=== PATIENT | male | born 1975 | race Caucasian/White ===

== ENCOUNTER 2017-08-19 14:46 | Observation (INO) | payer BC, OTHER ==
[2017-08-19] MEDS ORDERED: Aspirin 81 MG Tab.Chew PO ONE (15:00)
[2017-08-19] MEDS ORDERED: Sodium Chloride 0.9% 1,000 ML IV SCH (15:00)
--- NOTE | 2017-08-19 15:07 | EDM.PDOC ---
ED HPI GENERAL MEDICAL PROBLEM - General Chief Complaint: Chest Pain Stated Complaint: SOB Time Seen by Provider: 08/19/17 14:54 Source of Information: Reports: Patient History Limitations: Reports: No Limitations - History of Present Illness INITIAL COMMENTS - FREE TEXT/NARRATIVE: HISTORY AND PHYSICAL: History of present illness: Patient is a 42-year-old male who presents to the emergency room today with complaints of chest pain that radiates into both arms along with shortness of breath 1 week. Patient states that his symptoms are aggravated when performing physical activities or when he is exerted. Patient states his symptoms feel similar to a case of pneumonia that he had last year. Chest pain is not reproducible with palpation. Denies any headache, visual changes, nausea, vomiting or diarrhea. Denies any fever or chills. Has no cardiac history, and no significant family history. Patient has a past medical history of diabetes type 2 and high cholesterol. 25 year, pack per day smoker. Review of systems: As per history of present illness and below otherwise all systems reviewed and negative. Past medical history: As per history of present illness and as reviewed below otherwise noncontributory. Surgical history: As per history of present illness and as reviewed below otherwise noncontributory. Social history: No reported history of drug or alcohol abuse. Family history: As per history of present illness and as reviewed below otherwise noncontributory. Physical exam: General: Patient is a well-developed and well-nourished 42-year-old male. Able to speak in full sentences without shortness of breath. Alert and oriented. HEENT: Atraumatic, normocephalic, pupils reactive, negative for conjunctival pallor or scleral icterus, left tympanic membrane is erythematous with dull light reflex, right TM normal, mucous membranes moist, throat clear, neck supple , nontender, trachea midline. Lungs: Clear to auscultation, breath sounds equal bilaterally, chest nontender. Heart: S1S2, regular rate and rhythm Abdomen: Soft, obese, nondistended, nontender. Negative for masses. Negative for costovertebral tenderness. Pelvis: Stable nontender. Genitourinary: Deferred. Rectal: Deferred. Extremities: Atraumatic, moves all extremities per self, negative for cords or calf pain. Neurovascular unremarkable. Neuro: Awake, alert, oriented. Cranial nerves II through XII unremarkable. Cerebellum unremarkable. Motor and sensory unremarkable throughout. Exam nonfocal. Patient is pain-free. I reviewed the testing results with the patient. Due to the patient's risk factors such as age, smoking, symptoms I would like to admit him overnight for observation on telemetry. Dr. Mora was consult it on this patient and is agreeable for admission under observation status. Patient is agreeable and voices understanding. 1 g of nitroglycerin was applied topically. Will be placed on telemetry and going to [facility]. Incidental finding of a left otitis media. Patient does not have any otic pain, drainage, or itching - I will give the patient a script for Augmentin which he may fill upon his discharge if his ear becomes bothersome. Instructed to the patient that this may resolve on its own. Patient voices understanding and is agreeable to plan of care Diagnostics: CBC, CMP, troponin, EKG, chest x-ray, cardiac surgeon Therapeutics: Aspirin, IV fluid Augmentin Impression: Left otitis media, chest pain rule out myocardial infarction Plan: 1. Observation admission with telemetry Definitive disposition and diagnosis as appropriate pending reevaluation and review of above. Duration: Week(s): Location: Reports: Chest, Upper Extremity, Left, Upper Extremity, Right chest Pain Score (Numeric/FACES): 4 - Related Data Allergies Allergy/AdvReac Type Severity Reaction Status Date / Time No Known Allergies Allergy Verified 08/19/17 15:01 Home Meds: Home Meds . [No Known Home Meds] 08/19/17 [History] Past Medical History Cardiovascular History: Reports: High Cholesterol Endocrine/Metabolic History: Reports: Diabetes, Type II - Past Surgical History Musculoskeletal Surgical History: Reports: Shoulder Surgery Social & Family History - Tobacco Use Smoking Status *Q: Current Every Day Smoker Years of Tobacco use: 25 Packs/Tins Daily: 0.5 - Caffeine Use Caffeine Use: Reports: Coffee - Alcohol Use Days Per Week of Alcohol Use: 1 Number of Drinks Per Day: 10 Total Drinks Per Week: 10 - Recreational Drug Use Recreational Drug Use: Yes Recreational Drug Type: Reports: Marijuana/Hashish ED ROS GENERAL - Review of Systems Review Of Systems: ROS reveals no pertinent complaints other than HPI. ED EXAM, GENERAL - Physical Exam Exam: See Below (See Dictation) Course - Vital Signs Last Recorded V/S: Last Vital Signs Temp 36.1 C 08/19/17 14:46 Pulse 80 08/19/17 16:00 Resp 16 08/19/17 16:00 BP 114/71 08/19/17 16:00 Pulse Ox 94 L 08/19/17 16:00 - Orders/Labs/Meds Orders: Active Orders 24 hr Category Date Time Status Admission Status [Patient Status] [ADT] Stat ADT 08/19/17 15:55 Active EKG Documentation Completion [RC] STAT Care 08/19/17 15:00 Active Sodium Chloride 0.9% [Normal Saline] 1,000 ml Med 08/19/17 15:00 Active IV STAT Medication Orders Sodium Chloride (Normal Saline) 1,000 mls @ 125 mls/hr IV STAT GRACE Last Admin: 08/19/17 15:17 Dose: 125 mls/hr Labs: Laboratory Tests 08/19/17 08/19/17 08/19/17 Range/Units 15:10 15:10 15:10 WBC 9.40 (4.0-11.0) K/uL RBC 5.02 (4.50-5.90) M/uL Hgb 16.9 (13.0-17.0) g/dL Hct 46.8 (38.0-50.0) % MCV 93.2 (80.0-98.0) fL MCH 33.7 H (27.0-32.0) pg MCHC 36.1 (31.0-37.0) g/dL RDW Std Deviation 43.5 (28.0-62.0) fl RDW Coeff of James 13 (11.0-15.0) % Plt Count 209 (150-400) K/uL MPV 9.50 (7.40-12.00) fL Neut % (Auto) 62.8 (48.0-80.0) % Lymph % (Auto) 28.5 (16.0-40.0) % [place] % (Auto) 7.3 (0.0-15.0) % Eos % (Auto) 1.2 (0.0-7.0) % Baso % (Auto) 0.2 (0.0-1.5) % Neut # (Auto) 5.9 H (1.4-5.7) K/uL Lymph # (Auto) 2.7 H (0.6-2.4) K/uL [place] # (Auto) 0.7 (0.0-0.8) K/uL Eos # (Auto) 0.1 (0.0-0.7) K/uL Baso # (Auto) 0.0 (0.0-0.1) K/uL Nucleated RBC % 0.0 /100WBC Nucleated RBCs # 0 K/uL Sodium 137 (136-146) mmol/L Potassium 4.0 (3.5-5.1) mmol/L Chloride 101 (98-110) mmol/L Carbon Dioxide 27 (21-31) mmol/L BUN 13 (6.0-23.0) mg/dL Creatinine 1.1 (0.6-1.5) mg/dL Est Cr Clr Drug Dosing TNP Estimated GFR (MDRD) > 60.0 ml/min Glucose 335 H (60-110) mg/dL Calcium 9.9 (8.8-10.8) mg/dL Total Bilirubin 0.6 (0.1-1.5) mg/dL AST 25 (5-40) IU/L ALT 46 (8-54) IU/L Alkaline Phosphatase 67 (40-150) Troponin I < 0.10 (0.0-0.29) NG/ML Total Protein 7.4 (6.0-8.0) g/dL Albumin 4.4 (3.5-5.0) g/dL Globulin 3.0 (2.0-3.5) g/dL Albumin/Globulin Ratio 1.5 (1.3-2.8) Meds: Medications Generic Name Dose Route Start Last Admin Trade Name Freq PRN Reason Stop Dose Admin Sodium Chloride 1,000 mls @ 125 mls/hr 08/19/17 15:00 08/19/17 15:17 Normal Saline IV 125 mls/hr STAT GRACE Administration Discontinued Medications Generic Name Dose Route Start Last Admin Trade Name Freq PRN Reason Stop Dose Admin Aspirin 324 mg 08/19/17 15:00 08/19/17 15:17 Aspirin PO 08/19/17 15:01 324 mg ONETIME ONE Administration Nitroglycerin 1 gm 08/19/17 15:53 08/19/17 16:02 Nitro-Bid 2% TOP 08/19/17 15:54 1 gm ONETIME ONE Administration Nitroglycerin Confirm 08/19/17 15:59 Nitro-Bid 2% Administered 08/19/17 16:00 Dose 1 gm .ROUTE .STK-MED ONE Departure - Departure Time of Disposition: 16:16 Disposition: Refer to Observation Clinical Impression: Chest pain, rule out acute myocardial infarction Otitis media Qualifiers: Laterality: left Recurrence: not specified as recurrent Spontaneous tympanic membrane rupture: without spontaneous rupture Referrals: PCP,Unknown [Primary Care Provider] - Forms: ED Department Discharge - My Orders Last 24 Hours: My Active Orders 08/19/17 15:00 EKG Documentation Completion [RC] STAT Sodium Chloride 0.9% [Normal Saline] 1,000 ml IV STAT 08/19/17 15:55 Admission Status [Patient Status] [ADT] Stat - Assessment/Plan Last 24 Hours: My Active Orders 08/19/17 15:00 EKG Documentation Completion [RC] STAT Sodium Chloride 0.9% [Normal Saline] 1,000 ml IV STAT 08/19/17 15:55 Admission Status [Patient Status] [ADT] Stat
--- NOTE | 2017-08-19 15:38 | CR ---
EXAMINATION: Portable chest radiograph. HISTORY: Chest pain. FINDINGS: The trachea is midline. The cardiomediastinal silhouette is within normal limits. No pulmonary infilt rates, effusions or pneumothorax. Osseous structures appear unremarkable. IMPRESSION: No acute cardiopulmonary process.
[2017-08-19 15:40] LABS: CHLORIDE,CL 101 mmol/L (98-110); SODIUM,NA 137 mmol/L (136-146)
[2017-08-19] MEDS ORDERED: Nitroglycerin 2% Oint 1 GM UD Packet TOP ONE (15:53)
[2017-08-19] MEDS ORDERED: Nitroglycerin 2% Oint 1 GM UD Packet ONE (15:59)
[2017-08-19] MEDS ORDERED: Calcium Carbonate 500 MG Tab.Chew PO PRN (17:28)
--- NOTE | 2017-08-19 17:48 | PCM.HP ---
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 He has no history of diabetes or hypertension or heart disease. Today when he was working, he had tingling going down both arms as well as burning and pressure in his chest. He denies coughing or shortness of breath. He felt better when given nitrates in the ER. ECG was negative and his Troponin was normal. He is placed on observation to evaluate for ACS. Onset of Symptoms: Reports: Today Duration of Symptoms: Reports: Getting Worse Quality: Reports: Ache, Burning Severity: Moderate Improves with: Reports: Rest Worsens with: Reports: Other (Physical activity), Movement Context: Reports: Activity/Exercise, Exertion. Denies: Trauma Associated Symptoms: Denies: Cough, Fever/Chills, Headaches, Loss of Appetite, Nausea/Vomiting, Shortness of Breath chest Pain Score (Numeric/FACES): 4 - Related Data Allergies/Adverse Reactions: Allergies Allergy/AdvReac Type Severity Reaction Status Date / Time No Known Allergies Allergy Verified 08/19/17 15:01 Home Medications: Home Meds . [No Known Home Meds] 08/19/17 [History] Past Medical History - Past Health History Medical/Surgical History: Denies Medical/Surgical History HEENT History: Reports: None Cardiovascular History: Reports: High Cholesterol Respiratory History: Reports: None Gastrointestinal History: Reports: None Genitourinary History: Reports: None Musculoskeletal History: Reports: None Neurological History: Reports: None Endocrine/Metabolic History: Reports: Diabetes, Type II Other Endocrine/Metabolic History: pre-diabetes Hematologic History: Reports: None Immunologic History: Reports: None - Past Surgical History Musculoskeletal Surgical History: Reports: Shoulder Surgery Social & Family History - Family History Family Medical History: Noncontributory Endocrine/Metabolic: Reports: Diabetes, type II - Tobacco Use Smoking Status *Q: Current Every Day Smoker Years of Tobacco use: 25 Packs/Tins Daily: 2 Second Hand Smoke Exposure: No - Caffeine Use Caffeine Use: Reports: Coffee, Tea - Alcohol Use Days Per Week of Alcohol Use: 1 Number of Drinks Per Day: 2 Total Drinks Per Week: 2 Date of Last Drink: 08/16/17 Time of Last Drink: 21:00 - Recreational Drug Use Recreational Drug Use: No Drug Use in Last 12 Months: Yes Recreational Drug Type: Reports: Marijuana/Hashish H&P Review of Systems - Review of Systems: Review Of Systems: See Below General: Denies: Fever, Weakness, Fatigue, Night Sweats HEENT: Reports: No Symptoms, Ear Pain. Denies: Contact Lenses Pulmonary: Reports: No Symptoms Cardiovascular: Reports: Chest Pain. Denies: Palpitations, Dyspnea on Exertion , Lightheadedness, Syncope, Blood Pressure Problem Gastrointestinal: Denies: No Symptoms Genitourinary: Reports: No Symptoms Musculoskeletal: Reports: No Symptoms Skin: Reports: No Symptoms Psychiatric: Reports: No Symptoms Neurological: Reports: No Symptoms Hematologic/Lymphatic: Reports: No Symptoms Immunologic: Reports: No Symptoms Exam - Exam Exam: See Below - Vital Signs Vital Signs: Last Vital Signs Temp 36.1 C 08/19/17 16:32 Pulse 78 08/19/17 16:32 Resp 17 08/19/17 16:32 BP 120/76 08/19/17 16:32 Pulse Ox 98 08/19/17 16:32 Weight: 119.4 kg - Exam General: Alert, Oriented, Cooperative HEENT: Conjunctiva Clear, EOMI, Hearing Intact, Mucosa Moist & Hersey, Nares Patent, Posterior Pharynx Clear, Pupils Equal Neck: Supple, Trachea Midline Lungs: Clear to Auscultation, Normal Respiratory Effort Cardiovascular: Regular Rate, Regular Rhythm GI/Abdominal Exam: Soft, Non-Tender, No Organomegaly, No Distention, No Mass Extremities: Normal Inspection, Normal Range of Motion, Non-Tender, No Pedal Edema, Normal Capillary Refill Neurological: Cranial Nerves Intact Neuro Extensive - Mental Status: Alert, Oriented x3, Normal Mood/Affect, Memory Intact Psychiatric: Normal Affect - Patient Data Result Diagrams: 08/19/17 15:10 08/19/17 15:10 EKG INTERPRETATION Rhythm: NSR Comparison: NA - No Prior EKG *Q Meaningful Use (ADM) - VTE *Q VTE Criteria *Q: - Stroke *Q Stroke Criteria *Q: - AMI *Q AMI Criteria *Q: - Problem List (1) Hyperglycemia SNOMED Code(s): 71121130 ICD Code: R73.9 - HYPERGLYCEMIA, UNSPECIFIED Status: Acute Priority: Medium Current Visit: Yes (2) Chest pain, rule out acute myocardial infarction SNOMED Code(s): 43272995 ICD Code: R07.9 - CHEST PAIN, UNSPECIFIED Status: Acute Priority: High Current Visit: Yes Problem List Initiated/Reviewed/Updated: Yes Orders Last 24hrs: Active Orders 24 hr Category Date Time Status Bedrest Bathroom Privileges [RC] ASDIRECTED Care 08/19/17 17:28 Ordered Communication Order [RC] PER UNIT ROUTINE Care 08/19/17 17:08 Active EKG 12 Lead [EKG Documentation Completion] [RC] ROUTINE Care 08/20/17 08:00 Ordered Oxygen Therapy [RC] PRN Care 08/19/17 17:30 Ordered Telemetry Monitoring [Cardiac Monitoring] [RC] . Care 08/19/17 16:15 Active DIRECTED Vital Signs [RC] Q4H Care 08/19/17 17:29 Ordered No Concentrated Sweet Diet [DIET] Diet 08/20/17 Breakfast Ordered Regular Diet [DIET] Diet 08/19/17 Dinner Active GLYCOSYLATED HEMOGLOBIN,HGBA1C [CHEM] Routine Lab 08/19/17 17:27 Ordered TROPONIN I [CHEM] Routine Lab 08/20/17 03:00 Ordered TROPONIN I [CHEM] Urgent Lab 08/19/17 21:00 Ordered Acetaminophen [Tylenol] Med 08/19/17 17:28 Ordered 650 mg PO Q4H PRN Calcium Carbonate [Tums] Med 08/19/17 17:28 Ordered 500 mg PO Q4H PRN Code Status [Resuscitation Status] Routine Resus Stat 08/19/17 17:41 Ordered Medication Orders Acetaminophen (Tylenol) 650 mg PO Q4H PRN PRN Reason: analgesia/fever Calcium Carbonate/Glycine (Tums) 500 mg PO Q4H PRN PRN Reason: Dyspepsia Assessment/Plan Comment:: He will receive serial troponins and a repeat ECG in the morning. He will have further work up as indicated and if troponins are negative, he will be referred for stress testing. He is getting a glycosylated hemoglobin. A nonfasting glucose was 335 but the patient was not aware he was diabetic. Further glucoses will be checked AC. Diet is changed from regular to no concentrated sweets.
[2017-08-19] MEDS ORDERED: Insulin Aspart 100 Units/ML 3 ML Pen SUBCUT ONE (19:30)
[2017-08-20] MEDS: Acetaminophen 325 MG Tab PO PRN ×2 (03:25→08:38)
[2017-08-20] MEDS ORDERED: Insulin Aspart 100 Units/ML 3 ML Pen SUBCUT SCH (08:00)
[2017-08-20 08:46] VITALS: BP 120/74
[2017-08-20] MEDS ORDERED: Pantoprazole 40 MG in Sodium Chloride 0.9% 10 ML IVPUSH ONE (09:13)
--- NOTE | 2017-08-20 11:38 | PCM.DCSUM1 ---
<Jameson,Vivek - Last Filed: 08/20/17 19:30> Discharge Summary - Hospital Course Free Text/Narrative:: 42 yo male with no previous medical history admitted for chest pain r/o on 08/19. His initial EKG/troponin/cxr in ED were negative. He was admitted to floor for observation and telemetry. He had no previous diagnosis of DM but was found to have HbA1C of 9.1. His blood glucose levels ranged from 200-350 during admission. His chest pain recurred the next morning but was intermittent and mild. He reports history of recurrent intermittent chest pain that is burning in nature and occurs mostly in the morning when he wakes up. Overnight telemetry was negative and Troponin [id number] x3 were negative. He was discharged home the following morning. His chest pain was suspicious for dyspepsia therefore he was discharged home with Protonix 40 mg 30 tabs with 1 refill. He was also given referral for stress test as out-patient. For his DM he was discharged home on Metformin ER 1000 mg QD. He was informed of the importance if having PCP. He does not have official place of residence and lives hotel to [facility] but does stay at least one night per week in [place]. He was given information for pcp in [place] and here at [facility]. He was instructed to contact them Tuesday morning to schedule himself appointment. He acknowledged understanding and agreed with plan.He was discharged under care of his on 08/20/17. - Discharge Data Discharge Date: 08/20/17 Discharge Disposition: Home, Self-Care 01 Condition: Good - Patient Instructions Diet: Diabetic Diet Activity: As Tolerated Driving: May Drive Today Showering/Bathing: May Shower Other/Special Instructions: 1. You will be contacted by hospital to schedule your stress test. 2. We have provided you contact numbers for list of primary care physicians, please contact them to schedule yourself an appoitment. - Discharge Plan Prescriptions/Med Rec: metFORMIN HCl [Metformin HCl ER] 1,000 mg PO DAILY 30 Days #30 tab.er.24 Pantoprazole [ProTONIX] 40 mg PO BEDTIME #30 tab.cr Home Medications: Home Meds Pantoprazole [ProTONIX] 40 mg PO BEDTIME #30 tab.cr 08/20/17 [Rx] metFORMIN HCl [Metformin HCl ER] 1,000 mg PO DAILY 30 Days #30 tab.er.24 [Rx] Patient Handouts: Chest Wall Pain, [id number], Hyperglycemia, [id number], Metformin tablets, Pantoprazole tablets - Patient Data Vitals - Most Recent: Last Vital Signs Temp 36.8 C 08/20/17 08:00 Pulse 83 08/20/17 08:00 Resp 20 08/20/17 08:00 BP 120/74 08/20/17 08:00 Pulse Ox 75 L 08/20/17 08:00 Weight - Most Recent: 119.4 kg I&O - Last 24 hours: Intake & Output 08/19/17 08/20/17 08/20/17 22:59 06:59 14:59 Intake Total 250 400 350 Output Total 850 250 Balance 250 -450 100 Lab Results - Last 24 hrs: Laboratory Results - last 24 hr 08/19/17 08/19/17 08/19/17 Range/Units 19:52 20:47 21:07 POC Glucose 316 H 294 H (60-110) mg/dL Troponin I < 0.10 (0.0-0.29) NG/ML Triglycerides (10-190) mg/dL Cholesterol (131-240) mg/dL LDL Cholesterol, Calc (60-180) mg/dL VLDL Cholesterol (5-55) mg/dL HDL Cholesterol (40-80) mg/dL Cholesterol/HDL Ratio (3.3-6.0) 08/19/17 08/20/17 08/20/17 Range/Units 21:35 03:10 03:10 POC Glucose 253 H (60-110) mg/dL Troponin I < 0.10 (0.0-0.29) NG/ML Triglycerides 237 H (10-190) mg/dL Cholesterol 217 (131-240) mg/dL LDL Cholesterol, Calc 147 (60-180) mg/dL VLDL Cholesterol 47 (5-55) mg/dL HDL Cholesterol 23 L (40-80) mg/dL Cholesterol/HDL Ratio 9.4 H (3.3-6.0) Med Orders - Current: Current Medications Discontinued Medications Acetaminophen (Tylenol) 650 mg PO Q4H PRN PRN Reason: analgesia/fever Last Admin: 08/20/17 08:38 Dose: 650 mg Aspirin (Aspirin) 324 mg PO ONETIME ONE Stop: 08/19/17 15:01 Last Admin: 08/19/17 15:17 Dose: 324 mg Calcium Carbonate/Glycine (Tums) 500 mg PO Q4H PRN PRN Reason: Dyspepsia Sodium Chloride (Normal Saline) 1,000 mls @ 125 mls/hr IV STAT GRACE Last Admin: 08/19/17 15:17 Dose: 125 mls/hr Pantoprazole Sodium 40 mg/ (Sodium Chloride) 10 mls @ 300 mls/hr IVPUSH NOW ONE Stop: 08/20/17 09:14 Last Admin: 08/20/17 09:28 Dose: 300 mls/hr Insulin Aspart (Novolog) 10 unit SUBCUT ONETIME ONE Stop: 08/19/17 19:31 Last Admin: 08/19/17 19:56 Dose: 10 units Insulin Aspart (Novolog) 5 unit SUBCUT BIDMEALS GRACE Last Admin: 08/20/17 07:12 Dose: 5 units Nitroglycerin (Nitro-Bid 2%) 1 gm TOP ONETIME ONE Stop: 08/19/17 15:54 Last Admin: 08/19/17 16:02 Dose: 1 gm Nitroglycerin (Nitro-Bid 2%) Confirm Administered Dose 1 gm .ROUTE .STK-MED ONE Stop: 08/19/17 16:00 Last Admin: 08/19/17 16:16 Dose: Not Given *Q Meaningful Use (DIS) - VTE *Q VTE Criteria *Q: - Stroke *Q Stroke Criteria *Q: - AMI *Q AMI Criteria *Q: <Mason Mora - Last Filed: 08/21/17 11:39> Discharge Summary - Discharge Diagnosis/Problem(s) (1) Hyperglycemia SNOMED Code(s): 99289495 ICD Code: R73.9 - HYPERGLYCEMIA, UNSPECIFIED Status: Acute Priority: Medium (2) Chest pain, rule out acute myocardial infarction SNOMED Code(s): 83226612 ICD Code: R07.9 - CHEST PAIN, UNSPECIFIED Status: Acute Priority: High - Patient Data Vitals - Most Recent: Last Vital Signs Temp 36.8 C 08/20/17 08:00 Pulse 83 08/20/17 08:00 Resp 20 08/20/17 08:00 BP 120/74 08/20/17 08:00 Pulse Ox 75 L 08/20/17 08:00 Lab Results - Last 24 hrs: Laboratory Results - last 24 hr 08/20/17 Range/Units 06:31 POC Glucose 199 H (60-110) mg/dL Med Orders - Current: Current Medications Discontinued Medications Acetaminophen (Tylenol) 650 mg PO Q4H PRN PRN Reason: analgesia/fever Last Admin: 08/20/17 08:38 Dose: 650 mg Aspirin (Aspirin) 324 mg PO ONETIME ONE Stop: 08/19/17 15:01 Last Admin: 08/19/17 15:17 Dose: 324 mg Calcium Carbonate/Glycine (Tums) 500 mg PO Q4H PRN PRN Reason: Dyspepsia Sodium Chloride (Normal Saline) 1,000 mls @ 125 mls/hr IV STAT GRACE Last Admin: 08/19/17 15:17 Dose: 125 mls/hr Pantoprazole Sodium 40 mg/ (Sodium Chloride) 10 mls @ 300 mls/hr IVPUSH NOW ONE Stop: 08/20/17 09:14 Last Admin: 08/20/17 09:28 Dose: 300 mls/hr Insulin Aspart (Novolog) 10 unit SUBCUT ONETIME ONE Stop: 08/19/17 19:31 Last Admin: 08/19/17 19:56 Dose: 10 units Insulin Aspart (Novolog) 5 unit SUBCUT BIDMEALS GRACE Last Admin: 08/20/17 07:12 Dose: 5 units Nitroglycerin (Nitro-Bid 2%) 1 gm TOP ONETIME ONE Stop: 08/19/17 15:54 Last Admin: 08/19/17 16:02 Dose: 1 gm Nitroglycerin (Nitro-Bid 2%) Confirm Administered Dose 1 gm .ROUTE .STK-MED ONE Stop: 08/19/17 16:00 Last Admin: 08/19/17 16:16 Dose: Not Given *Q Meaningful Use (DIS) - VTE *Q VTE Criteria *Q: - Stroke *Q Stroke Criteria *Q: - AMI *Q AMI Criteria *Q: - Free Text/Narrative Note: Dr. Mora writes: I have examined this patient and have reviewed his data. I have discussed him at length with Dr. Barba. I agree with Dr. Barba's note, assessment and plan.
== END 2017-08-20 11:05 | disposition home or self-care (01) ==
LOC: MW.ED 14:46 → MW.MS 15:55 → MW.ED 16:14
PROVIDERS: ADMIT Family Medicine; ATTEND Family Medicine
DX: R07.9 Chest pain, unspecified (principal); E11.65 Type 2 diabetes mellitus with hyperglycemia; F17.210 Nicotine dependence, cigarettes, uncomplicated; Z98.890 Other specified postprocedural states
CPT/HCPCS: 36415; 71010; 80053; 80061; 82962; 83036; 84484; 85025; 93005; 96361; 96372; 96374; 99285; A9270; C9113; G0378; J1815; J7040; 96360; 99283

== ENCOUNTER 2025-08-19 22:31 | Inpatient (IN) | payer BC, OTHER ==
[2025-08-19] MEDS ORDERED: Sodium Chloride 0.9% 10 ML Syringe FLUSH PRN (22:35)
[2025-08-19] MEDS ORDERED: Sodium Chloride 0.9% 2.5 ML Syringe FLUSH PRN (22:35)
[2025-08-19 22:43] LABS: MEAN PLATELET VOLUME 9.0 fL (9.4-12.4); NRBC ABSOLUTE 0.00 K/uL (0.00-0.02); NRBC PERCENT 0.0 /100WBC (0.0-0.2); PLATELET COUNT,PLT 271 K/uL (150-400); RED BLOOD CELL COUNT 5.30 M/uL (4.52-5.90); WHITE BLOOD CELL COUNT,WBC 26.18 K/uL (3.9-11.3)
[2025-08-19] MEDS: methylPREDNISolone Sodium Succinate 125 MG/2 ML SDV IVPUSH ONE (22:47)
[2025-08-19 22:57] LABS: INR 1.04 (0.86-1.11)
[2025-08-19 23:09] LABS: BASE EXCESS VENOUS -1.0 (-2.0-3.0); BICARBONATE,VENOUS 25.0 mEq/L (22-29); PCO2 VENOUS 44.0 mmHG (41-51); PH,VENOUS 7.36 (7.32-7.43); PO2 VENOUS 40.0 mmHG (35-45)
[2025-08-19 23:12] LABS: A/G RATIO 1.4 (0.9-1.6); ALANINE AMINOTRANSFERASE,ALT 25 IU/L (14-63); ASPARTATE AMNIOTRANSFERASE,AST 18 IU/L (15-37); BILIRUBIN TOTAL 0.3 mg/dL (0.2-1.0); BLOOD UREA NITROGEN,BUN 19 mg/dL (7.0-18.0); CARBON DIOXIDE,CO2 26.5 mmol/L (21.0-32.0); CHLORIDE,CL 102 mmol/L (98-107); CREATININE 1.0 mg/dL (0.8-1.3); EST CRCL DRUG DOSING (CG) 81.71 mL/min; ETHANOL BLOOD MEDICAL <3 mg/dL; GLUCOSE RANDOM 181 mg/dL (74-106); POTASSIUM,K 4.2 mmol/L (3.5-5.1); PRO B-TYPE NATRIUR PEPT,BNPPRO 24 pg/mL (0-125); PROTEIN TOTAL,TP 7.7 g/dL (6.4-8.2); SODIUM,NA 140 mmol/L (136-148)
[2025-08-19 23:18] LABS: ESTIMATED GFR 91 mL/min (>60)
[2025-08-19] MEDS: cefTRIAXone 2 GM in Water For Injection, Sterile 20 ML IVPUSH ONE (23:35)
[2025-08-19 23:44] LABS: SEG NEUTROPHILS ABSOLUTE MAN 20.94 K/uL (1.80-7.70); SEG NEUTROPHILS PERCENT MAN 80 % (41-71)
[2025-08-19 23:45] LABS: LYMPHOCYTES ABSOLUTE MAN 3.40 K/uL (1.00-4.80); LYMPHOCYTES PERCENT MAN 13 % (24-44); MONOCYTES ABSOLUTE MAN 1.83 K/uL (0.00-0.80); MONOCYTES PERCENT MAN 7 % (0-8)
[2025-08-20] MEDS: Iopamidol 755 MG/ML 500 ML Multipack Bottle IVPUSH STA (00:25)
[2025-08-20 00:29] LABS: APPEARANCE,URINE CLEAR; GLUCOSE,URINE >=1000 mg/dL (NEGATIVE); OCCULT BLOOD,URINE NEGATIVE (NEGATIVE)
[2025-08-20 00:39] LABS: AMPHETAMINES SCREEN, URINE NEGATIVE (CUTOFF=500); BUPRENORPHINE SCREEN,URINE NEGATIVE (CUTOFF=10); METHADONE SCREEN, URINE NEGATIVE (CUTOFF=200); METHAMPHETAMINES SCREEN, URINE NEGATIVE (CUTOFF=500); OXYCODONE SCREEN,URINE NEGATIVE (CUT0FF=100); PCP SCREEN,URINE NEGATIVE (CUTOFF=25); THC SCREEN,URINE 20 NG/ML NEGATIVE (CUTOFF=50)
[2025-08-20] MEDS ORDERED: 50% Dextrose in Water 50 ML Syringe IVPUSH PRN (05:54)
[2025-08-20 06:31] LABS: MEAN PLATELET VOLUME 8.6 fL (9.4-12.4); NRBC ABSOLUTE 0.00 K/uL (0.00-0.02); NRBC PERCENT 0.0 /100WBC (0.0-0.2); PLATELET COUNT,PLT 235 K/uL (150-400); RED BLOOD CELL COUNT 5.18 M/uL (4.52-5.90); WHITE BLOOD CELL COUNT,WBC 18.42 K/uL (3.9-11.3)
[2025-08-20 06:53] LABS: BLOOD UREA NITROGEN,BUN 15.0 mg/dL (7.0-18.0); CARBON DIOXIDE,CO2 22.4 mmol/L (21.0-32.0); CHLORIDE,CL 106.0 mmol/L (98-107); CREATININE 0.9 mg/dL (0.8-1.3); EST CRCL DRUG DOSING (CG) 90.79 mL/min; GLUCOSE RANDOM 209.0 mg/dL (74-106); POTASSIUM,K 4.3 mmol/L (3.5-5.1); SODIUM,NA 140.0 mmol/L (136-148)
[2025-08-20 06:54] LABS: ESTIMATED GFR 103.0 mL/min (>60)
[2025-08-20] MEDS ORDERED: Sodium Chloride 0.9% 2.5 ML Syringe FLUSH PRN (08:02)
[2025-08-20] MEDS ORDERED: Ondansetron 4 MG/2 ML SDV IVPUSH PRN (08:02)
[2025-08-20] MEDS ORDERED: Sodium Chloride 0.9% 10 ML Syringe FLUSH PRN (08:02)
[2025-08-20] MEDS ORDERED: Sennosides/Docusate Sodium 50-8.6 MG Tab PO PRN (08:02)
[2025-08-20] MEDS: Fenofibrate,Micronized 67 MG Cap PO SCH (12:02)
[2025-08-20] MEDS: DAPAGLIFLOZIN PROPANEDIOL 10 MG PO SCH (13:21)
[2025-08-20] MEDS: cefTRIAXone 1 GM in Water For Injection, Sterile 10 ML IVPUSH SCH (21:26)
[2025-08-21 05:07] LABS: BORDETELLA PARAPERT IS1001 Not Detected (Not Detected)
[2025-08-21 06:00] LABS: BASOPHILS ABSOLUTE AUTO 0.03 K/uL (0.00-0.20); BASOPHILS PERCENT AUTO 0.3 % (0.0-1.0); EOSINOPHILS ABSOLUTE AUTO 0.07 K/uL (0.00-0.45); EOSINOPHILS PERCENT AUTO 0.6 % (0.0-6.0); IMMATURE GRAN ABSOLUTE AUTO 0.03 K/uL (0.00-0.05); IMMATURE GRAN PERCENT AUTO 0.3 % (0.0-0.4); LYMPHOCYTES ABSOLUTE AUTO 3.61 K/uL (1.00-4.80); LYMPHOCYTES PERCENT AUTO 33.3 % (24.0-44.0); MEAN PLATELET VOLUME 8.7 fL (9.4-12.4); MONOCYTES ABSOLUTE AUTO 0.73 K/uL (0.00-0.80); MONOCYTES PERCENT AUTO 6.7 % (0.0-8.0); NEUTROPHILS ABSOLUTE AUTO 6.36 K/uL (1.80-7.70); NEUTROPHILS PERCENT AUTO 58.8 % (41.0-71.0); NRBC ABSOLUTE 0.00 K/uL (0.00-0.02); NRBC PERCENT 0.0 /100WBC (0.0-0.2); PLATELET COUNT,PLT 210 K/uL (150-400); RED BLOOD CELL COUNT 5.16 M/uL (4.52-5.90); WHITE BLOOD CELL COUNT,WBC 10.83 K/uL (3.9-11.3)
[2025-08-21 06:28] LABS: BLOOD UREA NITROGEN,BUN 18.0 mg/dL (7.0-18.0); CARBON DIOXIDE,CO2 24.9 mmol/L (21.0-32.0); CHLORIDE,CL 104.0 mmol/L (98-107); CREATININE 0.9 mg/dL (0.8-1.3); EST CRCL DRUG DOSING (CG) 90.79 mL/min; GLUCOSE RANDOM 151.0 mg/dL (74-106); POTASSIUM,K 3.8 mmol/L (3.5-5.1); SODIUM,NA 140.0 mmol/L (136-148)
[2025-08-21 06:29] LABS: ESTIMATED GFR 103.0 mL/min (>60)
[2025-08-21 09:00] VITALS: BP 122/75; PULSE 74
== END 2025-08-21 09:42 | disposition home or self-care (01) | DRG 139 ==
LOC: MW.ED 22:31 → MW.MS 08-20 01:01 → OBSVTOIN 08-20 01:01
PROVIDERS: ADMIT Internal Medicine; ATTEND Internal Medicine
DX: J18.9 Pneumonia, unspecified organism (principal); J96.01 Acute respiratory failure with hypoxia; D72.829 Elevated white blood cell count, unspecified; E11.9 Type 2 diabetes mellitus without complications; I25.10 Atherosclerotic heart disease of native coronary artery without angina pectoris; R91.8 Other nonspecific abnormal finding of lung field; F17.200 Nicotine dependence, unspecified, uncomplicated; E78.00 Pure hypercholesterolemia, unspecified; E86.0 Dehydration; Z79.82 Long term (current) use of aspirin; Z79.84 Long term (current) use of oral hypoglycemic drugs; Z79.899 Other long term (current) drug therapy; Z98.890 Other specified postprocedural states; Z95.5 Presence of coronary angioplasty implant and graft
CPT/HCPCS: 36415; 71045; 71045-26; 71275; 71275-26; 80048; 80053; 80305; 80307; 81003; 82803; 82947; 83036; 83605; 83690; 83735; 83880; 84484; 85025; 85027; 85610; 87040; 87428-QW; 87486; 87581; 87633; 93005; 93010; 94667; 96361; 96365; 96367; 96372; 96375; 99285; 99285-25; A4216; A9270-GY; G0378; J0456; J0696; J1271; J1650; J1815-GY; J2919; J7030; J7050; Q9967